=== PATIENT | male | born 1955 | race African-American/Black ===

== ENCOUNTER → 2016-10-14 | Day surgery (SDC) | payer MEDICARE, BC ==
[~2016-10-14] MED LIST: AMOX500C PO; ASPI-482 PO; CHOL2000 PO; CIPR250T30 PO; CRESTOR5 MG PO; FOLI0.8T30 PO; GABA-585 PO; IOHEXOL 300 MG/ML 100ML VIAL. IART ONE; IOHEXOL 300 MG/ML 100ML VIAL. ONE; LIDOCAINE 1% / SOD BICARB 8.4% 20 ML VIAL. IJ ONE; ZOLP10TA PO
[2016-10-14 13:14] VITALS: BP 151/55
--- NOTE | 2016-10-14 15:15 | PDOC ---
BRIEF OPERATIVE NOTE Pre-Op Diagnosis PEG dependent Post-Op Diagnosis same Procedure Performed PEG replacement Surgeon Wali Anesthesia Type: Local Findings 24F PEG in good position, but patient considers it suboptimal for usability. PEG was exchanged for a new 24F PEG with better usability features per the patient. Original PEG was found to have no water within the retention balloon. New tube is suitable for use. BASSEM CONDON MD Oct 14, 2016 15:15
--- NOTE | 2016-10-14 16:01 | RAD ---
Gastrostomy tube injection under fluoroscopic guidance, and gastrostomy tube exchange Fluoroscopy time: 0.6 minutes. Images: 4. Clinical indication: 61-year-old with gastrostomy tube which continually falls out. The tube was also difficult to use for the patient due to the tubes rigidity and small lumen of the access port. Technique and findings: Following informed consent, the patient was prepped and draped in usual sterile fashion. Contrast was injected into the existing catheter under fluoroscopic guidance. The catheter is well positioned within the gastric lumen and there is rapid egress of contrast into the proximal jejunum. Attempts to deflate the balloon were then undertaken, however no fluid could be ascertained. The tube was then removed over a stiff Glidewire, and the retention balloon was seen to be empty. The integrity of the balloon was verified. A new 24 [place] percutaneous gastrostomy tube was then advanced over the wire and positioned through the tract with the distal tip in the lumen of the stomach. The retention balloon was inflated with 10cc of sterile water and the gastrostomy tube was pulled taut against the abdominal wall. The retention disc was then slid into place. Contrast was injected confirming excellent location and function of this new gastrostomy tube. Consultations: None. Impression: 1. Successful exchange of a 24 [place] percutaneous gastrostomy tube under fluoroscopic guidance as described. The new tube is more supple and has a larger lumen at the injection port, to facilitate useability by the patient. The retention balloon is adequately inflated.
== END | disposition home or self-care (01) ==
LOC: ENDOS 11:57
PROVIDERS: ATTEND Internal Medicine Gastroenterology
DX: T85.598A Other mechanical complication of other gastrointestinal prosthetic devices, implants and grafts, initial encounter (principal); Y84.8 Other medical procedures as the cause of abnormal reaction of the patient, or of later complication, without mention of misadventure at the time of the procedure; I25.10 Atherosclerotic heart disease of native coronary artery without angina pectoris; E78.00 Pure hypercholesterolemia, unspecified; Z99.2 Dependence on renal dialysis; F41.9 Anxiety disorder, unspecified; Z86.69 Personal history of other diseases of the nervous system and sense organs; Z87.39 Personal history of other diseases of the musculoskeletal system and connective tissue; Z83.3 Family history of diabetes mellitus; Z88.8 Allergy status to other drugs, medicaments and biological substances
CPT/HCPCS: 49450; C1769; Q9967